=== PATIENT | female | born 1940 | race Caucasian/White ===

== ENCOUNTER 2017-04-18 12:25 | Observation (INO) | payer OTHER, BC ==
[~2017-04-18] VITALS: Ht 170.2 cm; Wt 68.8 kg
[2017-04-18 13:31] LABS: HEMATOCRIT 44.4 % (36.0-46.0); MCH 30.7 PG (29.0-34.0); MCHC 33.6 G/DL (30.0-36.0); MCV 91.5 FL (83-99); MEAN PLAT.VOLUME 9.9 uM^3 (9.5-12.4); PLATELET COUNT 242 K/uL (156-360); RBC DIS.WIDTH-CV 12.8 % (11.8-14.6); RBC DIS.WIDTH-SD 42.8 % (39-53); RED BLOOD COUNT 4.85 M/uL (3.80-5.20); WHITE BLOOD COUNT 9.7 K/uL (4.1-10.2)
[2017-04-18 13:43] LABS: ADD MIUA? YES; BILIRUBIN NEGATIVE; BLOOD NEGATIVE; COLOR YELLOW ((YELLOW)); GLUCOSE (STRIP) NEGATIVE; KETONES NEGATIVE; LEUKOCYTES LARGE; NITRITE POSITIVE; PROTEIN (STRIP) NEGATIVE; UROBILINOGEN 0.2 MG/DL (0.2-1.0)
[2017-04-18 13:43] LABS: CHLORIDE 102 mEq/L (99-109); POTASSIUM 3.8 mEq/L (3.7-5.4); SODIUM 135 mEq/L (136-147)
[2017-04-18 13:44] LABS: GLUCOSE 106 mg/dL (70-99)
[2017-04-18 13:45] LABS: BACTERIA NONE SEEN /HPF; EPITHELIAL CELLS RARE /HPF; MUCUS TRACE /LPF; RED BLOOD CELLS 0-5 /HPF (0-5); UNCLASSIFIED CASTS 0-5 /LPF; WHITE BLOOD CELLS TNTC /HPF (0-5)
[2017-04-18 13:46] LABS: ANION GAP 10 MEQ/L (2-14)
[2017-04-18 13:48] LABS: GFR ESTIMATE (CALCULATED) > 59 mL/min/
[2017-04-18 13:49] LABS: UREA NITROGEN (BUN) 11 mg/dL (9-23)
[2017-04-18 13:51] LABS: CREATINE KINASE 171 IU/L (1-294)
[2017-04-18] MEDS ORDERED: LISINOPRIL40 MG PO (16:25)
[2017-04-18] MEDS ORDERED: FLONASE16 G1 BOTH NARES (16:25)
[2017-04-18] MEDS ORDERED: LIPITOR10 MG PO (16:25)
[2017-04-18] MEDS ORDERED: DITROPAN XL10 MG PO (16:25)
[2017-04-18] MEDS ORDERED: SINGULAIR10 MG PO (16:25)
[2017-04-18] MEDS ORDERED: METANX CAPSULE1 EACH PO (16:26)
[2017-04-18] MEDS ORDERED: VANIQA 13.9% TP (16:26)
[2017-04-18] MEDS ORDERED: SPIRIVA1 INHALATI IH (16:27)
[2017-04-18] MEDS ORDERED: ASPIR 8181 M1 PO (16:27)
[2017-04-18] MEDS ORDERED: HAIR, SKIN & N1 EAC1 PO (16:28)
[2017-04-18] MEDS ORDERED: FLORASTOR250 MG PO (16:28)
[2017-04-18] MEDS ORDERED: METAMUCIL POWD822 G1 PO (16:28)
[2017-04-18] MEDS ORDERED: MAGNESIUM250 MG PO (16:28)
[2017-04-18] MEDS ORDERED: SOOLANTRA30 GM TP (16:28)
[2017-04-18] MEDS ORDERED: VENTOLIN HFA18 GM IH (16:28)
[2017-04-18] MEDS ORDERED: SUPER MULTIVIT1 EACH PO (16:29)
[2017-04-18] MEDS ORDERED: PRILOSEC OTC20 MG PO (16:29)
[2017-04-18] MEDS ORDERED: GAVISCON ES CH1 EACH PO (16:29)
[2017-04-18] MEDS ORDERED: MIRALAX119 GM PO (16:29)
[2017-04-18] MEDS ORDERED: CALCIUM 500 MG1 EACH PO (16:29)
[2017-04-18] MEDS ORDERED: VITAMIN D31000 UNIT PO (16:30)
[2017-04-18 17:06] VITALS: BP 157/77
[2017-04-18 17:23] LABS: HDL CHOLESTEROL 57 MG/DL (Desirable>=50); LDL CHOLESTEROL 86 mg/dL (Desirable<100); NON-HDL CHOLESTEROL 106 mg/dL (Desirable<160); TOTAL CHOLESTEROL 163 mg/dL (Desirable<200); TRIGLYCERIDES 99 MG/DL (Normal: <150)
[2017-04-18 17:40] LABS: Estimated Average Glucose 120 mg/dL (70-123); HEMOGLOBIN A1c (GLYCOHEMOGLOB) 5.8 % HGB (Below 5.7)
[2017-04-18 18:41] VITALS: BP 173/96
[2017-04-18 19:46] VITALS: BP 169/78
[2017-04-19 00:31] VITALS: BP 141/73
[2017-04-19 03:54] VITALS: BP 115/57
[2017-04-19 06:00] LABS: HEMATOCRIT 37.3 % (36.0-46.0); MCH 31.3 PG (29.0-34.0); MCHC 33.8 G/DL (30.0-36.0); MCV 92.6 FL (83-99); MEAN PLAT.VOLUME 10.5 uM^3 (9.5-12.4); PLATELET COUNT 210 K/uL (156-360); RBC DIS.WIDTH-SD 44.1 % (39-53); RED BLOOD COUNT 4.03 M/uL (3.80-5.20); WHITE BLOOD COUNT 8.6 K/uL (4.1-10.2)
[2017-04-19 06:47] LABS: ALKALINE PHOSPHATASE 54 IU/L (3-129); ANION GAP 7 MEQ/L (2-14); CHLORIDE 105 MEQ/L (99-109); GFR ESTIMATE (CALCULATED) > 59 mL/min/; GLUCOSE 88 mg/dL (70-99); POTASSIUM 4.6 MEQ/L (3.7-5.4); SAMPLE HEMOLYSIS CHECK 0; SAMPLE ICTERIC CHECK 0; SAMPLE LIPEMIA CHECK 0; SODIUM 137 MEQ/L (136-147); TOTAL BILIRUBIN 0.6 MG/DL (0.0-1.0); UREA NITROGEN (BUN) 11 mg/dL (9-23)
[2017-04-19 08:04] VITALS: BP 127/72
[2017-04-19 10:58] VITALS: BP 141/79
[2017-04-19 11:06] LABS: LYME DISEASE SEROLOGY SCREEN NEGATIVE (NEGATIVE)
[2017-04-19] MEDS ORDERED: AUGMENTIN875 MG PO (11:24)
[2017-04-19] MEDS ORDERED: ANTIVERT25 MG PO (12:03)
[2017-04-19] MEDS ORDERED: NORVASC5 MG PO (13:23)
== END 2017-04-19 16:04 | disposition home or self-care (01) ==
LOC: EME 12:25 → 5WEST 16:23 → EDOF 16:23 → ENRESERV 16:25 → 5WEST 18:22 → ENPENDDIS 04-19 → 5WEST 04-19 16:04
PROVIDERS: Internal Medicine; Physician Assistant
DX: R55 Syncope and collapse (principal); N39.0 Urinary tract infection, site not specified; H81.90 Unspecified disorder of vestibular function, unspecified ear; E87.1 Hypo-osmolality and hyponatremia; I27.20 Pulmonary hypertension, unspecified; I08.1 Rheumatic disorders of both mitral and tricuspid valves; I10 Essential (primary) hypertension; E78.00 Pure hypercholesterolemia, unspecified; J44.9 Chronic obstructive pulmonary disease, unspecified; F41.9 Anxiety disorder, unspecified; Z87.891 Personal history of nicotine dependence; Z79.82 Long term (current) use of aspirin
CPT/HCPCS: 70450; 70551; 71020; 80048; 80053; 80061; 81003; 82550; 83036; 84443; 85027; 86618; 87077; 87086; 87186; 92523 GN; 93005; 93306; 93880; 93971; 94640; 94760; 99202; 99281; 99285; G0378; G9162 GN CH; G9163 GN CH; G9164 GN CH; J0696; J1650; J7030; J7050